=== PATIENT | male | born 1970 | race Caucasian/White ===

== ENCOUNTER 2017-10-19 16:26 | Emergency (ER) | payer MEDICAID ==
[~2017-10-19] VITALS: Ht 182.9 cm; Wt 98.6 kg
[2017-10-19 16:28] VITALS: BP 139/88
[2017-10-19] MEDS ORDERED: PROPARACAINE OPHTH 0.5%, 15ML EACHEYE ONE (17:00)
[2017-10-19] MEDS ORDERED: FLUORESCEIN OPHTHALMIC 1 MG STRIP EACHEYE ONE (17:00)
== END 2017-10-19 17:11 | disposition home or self-care (01) ==
LOC: ED 17:00
DX: B30.9 Viral conjunctivitis, unspecified (principal)
CPT/HCPCS: 99283

== ENCOUNTER 2018-04-06 13:22 | Emergency (ER) | payer MEDICAID ==
[~2018-04-06] VITALS: Ht 182.9 cm; Wt 97.1 kg
[2018-04-06] MEDS ORDERED: HYDROcodone/APAP 5/325 TABLET ONE (13:52)
[2018-04-06] MEDS ORDERED: CYCLOBENZAPRINE 10 MG TABLET ONE (13:52)
[2018-04-06] MEDS ORDERED: KETOROLAC 30 MG/1 ML ONE (13:52)
[2018-04-06] MEDS ORDERED: KETOROLAC 30 MG/1 ML IM ONE (14:00)
[2018-04-06] MEDS ORDERED: CYCLOBENZAPRINE 10 MG TABLET PO ONE (14:00)
[2018-04-06] MEDS ORDERED: HYDROcodone/APAP 5/325 TABLET PO ONE (14:00)
[2018-04-06 15:01] VITALS: BP 127/88
== END 2018-04-06 15:03 | disposition home or self-care (01) ==
LOC: ED 14:00
DX: S39.012A Strain of muscle, fascia and tendon of lower back, initial encounter (principal); M54.42 Lumbago with sciatica, left side; F17.200 Nicotine dependence, unspecified, uncomplicated; Z88.0 Allergy status to penicillin; X58.XXXA Exposure to other specified factors, initial encounter; Y93.89 Activity, other specified; Y99.8 Other external cause status; Y92.89 Other specified places as the place of occurrence of the external cause
CPT/HCPCS: 72110; 96372; 99284; J1885

== ENCOUNTER 2019-06-22 15:02 | Emergency (ER) | payer MEDICAID ==
[~2019-06-22] VITALS: Ht 182.9 cm; Wt 90.9 kg
--- NOTE | 2019-06-22 15:16 | NUR ---
PT AMBULATED BACK TO ROOM WITHOUT DIFFICULTY.
--- NOTE | 2019-06-22 15:16 | NUR ---
ERP AT NOW.
[2019-06-22] MEDS ORDERED: DIPH,PERTUSS(ACELL),TET VAC/PF 0.5 ML IM-VACC ONE ×2 (15:30→15:31)
[2019-06-22] MEDS ORDERED: LIDOCAINE-MPF 1%, 5ML INFIL ONE (15:30)
[2019-06-22] MEDS ORDERED: CLINDAMYCIN 150 MG CAPSULE PO ONE (15:30)
[2019-06-22] MEDS ORDERED: CLINDAMYCIN 300 MG CAPSULE ONE (15:31)
[2019-06-22] MEDS ORDERED: LIDOCAINE-MPF 1%, 5ML ONE (15:32)
--- NOTE | 2019-06-22 15:43 | NUR ---
PT MEDICATED PER ORDERS. PA AT BS TO DRAIN R ARM ABSCESS.
[2019-06-22 15:44] LABS: BASOPHILS # (AUTO) 0.07 x10^3/uL (0-0.1); BASOPHILS % (AUTO) 1 % (0-1); EOSINOPHILS # (AUTO) 0.19 x10^3/uL (0-0.4); EOSINOPHILS % (AUTO) 2 % (1-7); LYMPHOCYTES # (AUTO) 2.28 x10^3/uL (1-3.4); LYMPHOCYTES % (AUTO) 24 % (22-44); MD NO; MEAN CORPUSCULAR HEMOGLOBIN 30.1 pg (27.5-34.5); MEAN CORPUSCULAR HGB CONC 33.3 g/dL (33.2-36.2); MEAN CORPUSCULAR VOLUME 90.4 fL (81-97); MEAN PLATELET VOLUME 9.5 fL (7.4-10.4); MONOCYTES # (AUTO) 0.68 x10^3/uL (0.2-0.8); MONOCYTES % (AUTO) 7 % (2-9); NEUTROPHILS % (AUTO) 67 % (42-75); PLATELET COUNT 113 x10^3/uL (130-400); RED CELL DISTRIBUTION WIDTH 14.2 % (9.4-14.8)
[2019-06-22 15:54] LABS: ALBUMIN 3.5 g/dL (3.4-5.0); ANION GAP 4 mmol/L (5-15); CALCIUM 8.8 mg/dL (8.5-10.1); CHLORIDE 104 mmol/L (98-107); CREATININE 0.92 mg/dL (0.7-1.3)
[2019-06-22 16:20] VITALS: BP 135/36
--- NOTE | 2019-06-22 16:20 | NUR ---
R FOREARM ABSCESS WAS DRAINED BY ED PA. PT TOLERATED WELL. STERILE GAUZE DRESSING AND TAPE APPLIED. ADDITIONAL DRESSING SUPPLIES PROVIDED TO PT.D/C INSTRUCTIONS, MEDS & F/U APPT RV'WD WITH PT, HE VERBALIZES UNDERSTANDING. REDNESS ON R ARM MARKED WITH SHARPIE, INSTRUCTED PT TO F/U SOONER IF REDNESS, SWELLING OR PAIN INCREASES. RX GIVEN X1. PT AMBULATED OUT OF ED WITHOUT DIFFICULTY.
== END 2019-06-22 16:38 | disposition home or self-care (01) ==
LOC: ED 16:02
DX: L03.113 Cellulitis of right upper limb (principal); L02.413 Cutaneous abscess of right upper limb
CPT/HCPCS: 10060; 36415; 80048; 82040; 83605; 85025; 90471; 90715; 99283

== ENCOUNTER 2019-06-25 09:51 | Emergency (ER) | payer MEDICAID ==
[~2019-06-25] VITALS: Ht 182.9 cm; Wt 93.2 kg
[2019-06-25 09:53] VITALS: BP 125/84
--- NOTE | 2019-06-25 10:01 | NUR ---
PT HERE FOR WOUND RECHECK, STATES HE WAS SEEN 2-3 DAYS AGO FOR I&D.
--- NOTE | 2019-06-25 10:56 | NUR ---
Patient/Caregiver given discharge instructions and they have confirmed that they understand the instructions. Patient ambulatory with steady gait.
== END 2019-06-25 10:58 | disposition home or self-care (01) ==
LOC: ED 10:40
DX: Z48.01 Encounter for change or removal of surgical wound dressing (principal)
CPT/HCPCS: 99283

== ENCOUNTER 2020-08-29 11:04 | Emergency (ER) | payer MEDICAID ==
[~2020-08-29] VITALS: Ht 182.9 cm; Wt 87.4 kg
[2020-08-29 11:25] VITALS: BP 120/70
--- NOTE | 2020-08-29 11:25 | NUR ---
first contact with pt. pt c/o pain/redness/swelling in r wrist area d/t meth shot yesterday. pt denies any other symptoms. pt's aox4. resps even and unlabored. edmd at bedside for assessment at this time. bp/spo2 monitors in place. call light within reach.
== END 2020-08-29 12:00 | disposition home or self-care (01) ==
LOC: ED 11:50
DX: L03.114 Cellulitis of left upper limb (principal); F15.10 Other stimulant abuse, uncomplicated; Z88.0 Allergy status to penicillin
CPT/HCPCS: 99283; 99284